=== PATIENT | male | born 1950 | race Caucasian/White ===

== ENCOUNTER 2024-08-24 22:36 | Inpatient (IN) | payer OTHER ==
[~2024-08-24] VITALS: Ht 180.3 cm; Wt 80.1 kg
[~2024-08-24 22:36] MED LIST: HYDROCODON-ACE1 EA15 PO
[2024-08-24] MEDS ORDERED: IOPAMIDOL 370 MG/ML 100 ML INFUS..BTL INJ ONE (23:58)
[2024-08-25] VITALS (9 sets, daily range): BP systolic 132–194; BP diastolic 81–93; PULSE 69–80; RESP 16–20; TEMP 97.8–98.5; O2SAT 95–99
[2024-08-25] MEDS: POTASSIUM CHLORIDE 20 MEQ TAB CR PO STA (01:17)
[2024-08-25] MEDS: ONDANSETRON HCL INJ 2MG/ML 2ML 2 MG/ML VIAL IV STA (01:19)
[2024-08-25] MEDS: Morphine 4mg INJECTION 4 MG/ML INJ IV ONE (01:20)
[2024-08-25] MEDS: SODIUM CHLORIDE 0.9% 1000ML 1,000 ML IV SCH (01:21)
[2024-08-25] MEDS: ONDANSETRON HCL INJ 2MG/ML 2ML 2 MG/ML VIAL IV PRN (06:06)
[2024-08-25] MEDS: Morphine 4mg INJECTION 4 MG/ML INJ IV PRN (06:06)
[2024-08-25] MEDS ORDERED: ATORVASTATIN CA20 MG PO (10:29)
[2024-08-25] MEDS ORDERED: LOSARTAN POTAS100 MG PO (10:29)
[2024-08-25] MEDS ORDERED: PLAVIX75 MG PO (10:29)
[2024-08-25] MEDS ORDERED: ALBUTEROL0.63 MG/3 NEB (10:29)
[2024-08-25] MEDS ORDERED: ACETAMINOPHEN 325 MG TAB PO PRN (11:30)
[2024-08-25] MEDS ORDERED: HYDRALAZINE HCL 20 MG/ML VIAL IV PRN (11:30)
[2024-08-26] VITALS (12 sets, daily range): BP systolic 130–163; BP diastolic 84–99; PULSE 75–82; RESP 16–18; TEMP 98.5–99.3; O2SAT 96–99
[2024-08-26 06:07] LABS: BASOPHILS % 0.3 % (0.0-1.0); EOSINOPHILS # (AUTO) 0.1 (0.0-0.4); EOSINOPHILS % 0.6 % (0.0-6.0); LYMPHOCYTES # (AUTO) 1.9 (1.0-3.2); LYMPHOCYTES % 19.4 % (18.0-39.1); MEAN CORPUSCULAR HEMOGLOBIN 33.2 pg (28-32); MEAN CORPUSCULAR HGB CONC 31.3 g/dL (31-35); MEAN CORPUSCULAR VOLUME 106.2 fL (81-99); MONOCYTES # (AUTO) 0.8 (0.2-0.8); MONOCYTES % 8.6 % (4.4-11.3); NEUTROPHILS # (AUTO) 6.8 (2.1-6.9); NEUTROPHILS % 70.7 % (38.7-80.0); PLATELET COUNT 186 x10e3/uL (140-360); RED BLOOD COUNT 2.26 x10e6/uL (4.3-5.7); RED CELL DISTRIBUTION WIDTH 14.4 % (11.7-14.4); WHITE BLOOD COUNT 9.57 x10e3/uL (4.8-10.8)
[2024-08-26 06:09] LABS: HEMOGLOBIN 7.5 g/dL (14.0-18.0)
[2024-08-26 06:22] LABS: ANION GAP 11.2 mmol/L (8-16); CALCIUM 7.6 mg/dL (8.4-10.2); CREATININE, SERUM 0.73 mg/dL (0.72-1.25)
[2024-08-26 06:31] LABS: POTASSIUM 3.2 mmol/L (3.5-5.1)
[2024-08-26] MEDS: POTASSIUM CHLORIDE 10MEQ/100ML 100 ML IV ONE (12:56)
[2024-08-26] MEDS: ATORVASTATIN 20 MG TAB PO SCH (20:04)
[2024-08-26] MEDS: ALBUTEROL SULF 0.083% NEB SOLN 3 ML NEB NEB PRN (20:26)
[2024-08-27] VITALS (12 sets, daily range): BP systolic 128–147; BP diastolic 81–92; PULSE 70–82; RESP 18–20; TEMP 97.4–99.7; O2SAT 92–100
[2024-08-27 05:28] LABS: BASOPHILS % 0.2 % (0.0-1.0); EOSINOPHILS # (AUTO) 0.1 (0.0-0.4); EOSINOPHILS % 0.5 % (0.0-6.0); HEMATOCRIT 22.4 % (38.2-49.6); HEMOGLOBIN 7.3 g/dL (14.0-18.0); MEAN CORPUSCULAR HEMOGLOBIN 33.6 pg (28-32); MEAN CORPUSCULAR HGB CONC 32.6 g/dL (31-35); MEAN CORPUSCULAR VOLUME 103.2 fL (81-99); MONOCYTES # (AUTO) 0.9 (0.2-0.8); MONOCYTES % 9.3 % (4.4-11.3); NEUTROPHILS # (AUTO) 6.2 (2.1-6.9); NEUTROPHILS % 67.6 % (38.7-80.0); PLATELET COUNT 167 x10e3/uL (140-360); RED BLOOD COUNT 2.17 x10e6/uL (4.3-5.7); RED CELL DISTRIBUTION WIDTH 14.2 % (11.7-14.4); WHITE BLOOD COUNT 9.15 x10e3/uL (4.8-10.8)
[2024-08-27 05:53] LABS: ANION GAP 10.3 mmol/L (8-16); CREATININE, SERUM 0.73 mg/dL (0.72-1.25)
[2024-08-27 06:16] LABS: POTASSIUM 3.3 mmol/L (3.5-5.1)
[2024-08-27] MEDS: LOSARTAN POTASSIUM 100 MG TAB PO SCH (08:46)
[2024-08-27] MEDS: POTASSIUM CHLORIDE 10MEQ EA PO ONE (13:10)
[2024-08-28] VITALS (9 sets, daily range): BP systolic 123–162; BP diastolic 81–121; PULSE 74–90; RESP 18–20; TEMP 97–98.8; O2SAT 96–99
[2024-08-28 05:32] LABS: BASOPHILS % 0.3 % (0.0-1.0); EOSINOPHILS # (AUTO) 0.2 (0.0-0.4); EOSINOPHILS % 2.3 % (0.0-6.0); HEMATOCRIT 22.3 % (38.2-49.6); HEMOGLOBIN 7.1 g/dL (14.0-18.0); LYMPHOCYTES # (AUTO) 1.6 (1.0-3.2); LYMPHOCYTES % 23.4 % (18.0-39.1); MEAN CORPUSCULAR HGB CONC 31.8 g/dL (31-35); MEAN CORPUSCULAR VOLUME 103.7 fL (81-99); MONOCYTES # (AUTO) 0.8 (0.2-0.8); MONOCYTES % 11.7 % (4.4-11.3); NEUTROPHILS # (AUTO) 4.3 (2.1-6.9); NEUTROPHILS % 61.9 % (38.7-80.0); PLATELET COUNT 178 x10e3/uL (140-360); RED BLOOD COUNT 2.15 x10e6/uL (4.3-5.7); RED CELL DISTRIBUTION WIDTH 14.1 % (11.7-14.4)
[2024-08-28 06:01] LABS: ANION GAP 11.3 mmol/L (8-16); CALCIUM 7.8 mg/dL (8.4-10.2); CREATININE, SERUM 0.72 mg/dL (0.72-1.25)
[2024-08-28 06:03] LABS: POTASSIUM 3.3 mmol/L (3.5-5.1)
[2024-08-28] MEDS: POTASSIUM CHLORIDE 10MEQ EA PO ONE (13:00)
[2024-08-28] MEDS: CALCIUM CARBONATE 500 MG CHEWABLE TABS PO PRN (14:49)
[2024-08-28] MEDS: DOCUSATE SODIUM 100 MG CAP PO SCH (16:48)
[2024-08-29] VITALS (11 sets, daily range): BP systolic 123–157; BP diastolic 72–94; PULSE 70–96; RESP 17–19; TEMP 98.3–98.9; O2SAT 97–100
[2024-08-29 05:59] LABS: BASOPHILS % 0.5 % (0.0-1.0); EOSINOPHILS # (AUTO) 0.2 (0.0-0.4); EOSINOPHILS % 2.9 % (0.0-6.0); HEMOGLOBIN 7.3 g/dL (14.0-18.0); LYMPHOCYTES # (AUTO) 1.4 (1.0-3.2); LYMPHOCYTES % 21.1 % (18.0-39.1); MEAN CORPUSCULAR HEMOGLOBIN 33.6 pg (28-32); MEAN CORPUSCULAR HGB CONC 31.7 g/dL (31-35); MONOCYTES # (AUTO) 0.7 (0.2-0.8); MONOCYTES % 11.3 % (4.4-11.3); NEUTROPHILS # (AUTO) 4.2 (2.1-6.9); NEUTROPHILS % 63.9 % (38.7-80.0); PLATELET COUNT 205 x10e3/uL (140-360); RED BLOOD COUNT 2.17 x10e6/uL (4.3-5.7); RED CELL DISTRIBUTION WIDTH 13.8 % (11.7-14.4); WHITE BLOOD COUNT 6.53 x10e3/uL (4.8-10.8)
[2024-08-29 06:30] LABS: ANION GAP 11.9 mmol/L (8-16); CALCIUM 8.3 mg/dL (8.4-10.2); CREATININE, SERUM 0.73 mg/dL (0.72-1.25); POTASSIUM 3.9 mmol/L (3.5-5.1)
[2024-08-30] VITALS (7 sets, daily range): BP systolic 118–148; BP diastolic 77–94; PULSE 58–81; RESP 16–18; TEMP 97.7–99.3; O2SAT 94–100
[2024-08-30] MEDS ORDERED: BUPIVACAINE HCL 0.5% INJ 30 ML VIAL INJ ONE (12:08)
[2024-08-30] MEDS: FENTANYL CITRATE/PF 100MCG/2 ML INJ ONE (13:58)
[2024-08-31] VITALS (9 sets, daily range): BP systolic 131–154; BP diastolic 81–92; PULSE 79–101; RESP 16–23; TEMP 98.3–99.1; O2SAT 90–100
[2024-08-31] MEDS ORDERED: LIDOCAINE HCL 2% LOCAL INJ 5 ML SDV VIAL INJ ONE ×2 (04:28→04:51)
[2024-08-31] MEDS ORDERED: MIDAZOLAM HCL 2 MG/2 ML VIAL ONE (04:28)
[2024-08-31] MEDS ORDERED: PROPOFOL IV EMULSION 10 MG/ML 20 ML VIAL ONE ×2 (04:28→04:51)
[2024-08-31] MEDS ORDERED: FENTANYL CITRATE/PF 100MCG/2 ML INJ ONE ×2 (04:28→04:43)
[2024-08-31] MEDS ORDERED: ACETAMINOPHEN 1000 MG/100 ML 100 ML IV ONE (04:37)
[2024-08-31] MEDS ORDERED: CEFTRIAXONE 1 GM VIAL ONE (04:37)
[2024-08-31 06:07] LABS: BASOPHILS % 0.3 % (0.0-1.0); EOSINOPHILS # (AUTO) 0.1 (0.0-0.4); EOSINOPHILS % 0.6 % (0.0-6.0); HEMATOCRIT 25.8 % (38.2-49.6); HEMOGLOBIN 8.1 g/dL (14.0-18.0); LYMPHOCYTES # (AUTO) 1.5 (1.0-3.2); LYMPHOCYTES % 14.3 % (18.0-39.1); MEAN CORPUSCULAR HEMOGLOBIN 33.3 pg (28-32); MEAN CORPUSCULAR HGB CONC 31.4 g/dL (31-35); MEAN CORPUSCULAR VOLUME 106.2 fL (81-99); MONOCYTES # (AUTO) 0.9 (0.2-0.8); MONOCYTES % 8.3 % (4.4-11.3); NEUTROPHILS # (AUTO) 8.1 (2.1-6.9); NEUTROPHILS % 76.1 % (38.7-80.0); PLATELET COUNT 259 x10e3/uL (140-360); RED BLOOD COUNT 2.43 x10e6/uL (4.3-5.7); RED CELL DISTRIBUTION WIDTH 13.3 % (11.7-14.4)
[2024-08-31 06:12] LABS: WHITE BLOOD COUNT 10.65 x10e3/uL (4.8-10.8)
[2024-08-31 06:29] LABS: ANION GAP 13.9 mmol/L (8-16); CALCIUM 8.4 mg/dL (8.4-10.2); CREATININE, SERUM 0.74 mg/dL (0.72-1.25); POTASSIUM 3.9 mmol/L (3.5-5.1)
[2024-08-31] MEDS: ACETAMINOPHEN/CODEINE 300MG - 30MG TAB PO PRN (14:41)
[2024-09-01 00:15] VITALS: BP 154/85; PULSE 61; RESP 20; TEMP 99.1; O2SAT 99
[2024-09-01 00:17] VITALS: BP 154/85; PULSE 61; RESP 20; TEMP 99.1; O2SAT 99
[2024-09-01 06:00] LABS: BASOPHILS % 0.2 % (0.0-1.0); EOSINOPHILS % 0.4 % (0.0-6.0); HEMATOCRIT 24.4 % (38.2-49.6); LYMPHOCYTES # (AUTO) 1.5 (1.0-3.2); LYMPHOCYTES % 14.7 % (18.0-39.1); MEAN CORPUSCULAR HEMOGLOBIN 32.5 pg (28-32); MEAN CORPUSCULAR HGB CONC 31.1 g/dL (31-35); MEAN CORPUSCULAR VOLUME 104.3 fL (81-99); MONOCYTES # (AUTO) 0.9 (0.2-0.8); NEUTROPHILS # (AUTO) 7.5 (2.1-6.9); NEUTROPHILS % 75.3 % (38.7-80.0); PLATELET COUNT 281 x10e3/uL (140-360); RED BLOOD COUNT 2.34 x10e6/uL (4.3-5.7); RED CELL DISTRIBUTION WIDTH 13.2 % (11.7-14.4); WHITE BLOOD COUNT 9.94 x10e3/uL (4.8-10.8)
[2024-09-01 06:06] LABS: HEMOGLOBIN 7.6 g/dL (14.0-18.0)
[2024-09-01 07:57] VITALS: PULSE 75; RESP 18; O2SAT 99
[2024-09-01 08:00] VITALS: BP 142/84; PULSE 69; RESP 18; TEMP 98.2; O2SAT 99
[2024-09-01 08:18] VITALS: BP 136/81; PULSE 74; RESP 20; TEMP 98.6; O2SAT 97
[2024-09-01 09:21] VITALS: BP 154/85; PULSE 75; RESP 18; TEMP 99.1; O2SAT 99
[2024-09-01] MEDS ORDERED: CIPRO500 MG PO (12:15)
== END 2024-09-01 17:00 | disposition home or self-care (01) | DRG 730 ==
LOC: FSED 23:00 → ERHOLD 08-25 02:22 → MED/SURG2 08-25 09:04
PROVIDERS: ADMIT Internal Medicine; ATTEND Internal Medicine
PROC: 0T9B70Z Drainage of Bladder with Drainage Device, Via Natural or Artificial Opening (ICD-10-PCS; 2024-08-25)
PROC: 0VB50ZX Excision of Scrotum, Open Approach, Diagnostic (ICD-10-PCS; 2024-08-30)
PROC: 0VB50ZX Excision of Scrotum, Open Approach, Diagnostic (ICD-10-PCS; principal; 2024-08-30 12:16)
DX: N43.3 Hydrocele, unspecified (principal); D64.9 Anemia, unspecified; I10 Essential (primary) hypertension; I25.10 Atherosclerotic heart disease of native coronary artery without angina pectoris; N50.89 Other specified disorders of the male genital organs; N50.9 Disorder of male genital organs, unspecified; R33.8 Other retention of urine; S30.22XA Contusion of scrotum and testes, initial encounter; E87.6 Hypokalemia; E86.0 Dehydration; E78.00 Pure hypercholesterolemia, unspecified; X58.XXXA Exposure to other specified factors, initial encounter; Z95.1 Presence of aortocoronary bypass graft; Z82.49 Family history of ischemic heart disease and other diseases of the circulatory system
CPT/HCPCS: 36415; 74177; 76870; 80048; 80053; 81003; 85025; 85610; 86850; 86900; 94640; 94799; 99284; J0360; J0696; J2003; J2250; J2270; J2405; J3480; J7030; Q9967